=== PATIENT | female | born 1955 | race Two or more races ===

== ENCOUNTER 2024-07-06 08:52 | Emergency (ER) | payer OTHER ==
[~2024-07-06] VITALS: Ht 170.2 cm; Wt 98.5 kg
[2024-07-06 09:10] VITALS: PULSE 70; RESP 16; O2SAT 97
--- NOTE | 2024-07-06 11:00 | ED.PDOC ---
Epistaxis- HPI HPI Comments 68 y/o obese F, with a history of HTN, presents with c/o epistaxis since 0600, this morning. Patient reports unprovoked onset, with no prior history of epistaxis in the past. She refutes any history of blood thinner use along with any recent injuries, stressors, or strenuous activities. Patient denies any pain, weakness, lightheadedness, or other associated symptoms at this time. Chief Complaint: Nose Bleed Time Seen by MD: 10:00 Primary Care Provider: SO Cash Notes: Nurses Notes, Medications, Allergies Allergies: Coded Allergies: NO KNOWN ALLERGIES (Unverified , 07/06/24) Information Source: Patient Mode of Arrival: Ambulatory Timing: Hours Duration: Since onset Prehospital treatment: None Associated signs and symptoms: None Past Medical History PAST MEDICAL HISTORY: HTN Past Medical History (Other): obesity Surgical History: Denies all surgeries CHANGER FIXER History: Denies all CHANGER FIXER Hx Family History Family History: Unknown Social History Smoker: Non-Smoker Alcohol: Denies ETOH Use Drugs: Denies Drug Use Lives In: Home All Other Systems: Reviewed and Negative (Comprehensive systems review obtained and negative except for what is stated in the HPI.) Physical Exam General Appearance: No Apparent Distress, Obese HEENT: Pharynx Normal, TMs Normal, Other (anterior epistaxis, actively bleeding, otherwise normal HEENT exam ) Neck: Full Range of Motion, Non-Tender, Normal, Normal Inspection Respiratory: Chest Non-Tender, Lungs Clear, No Accessory Muscle Use, No Respiratory Distress, Normal Breath Sounds Cardiovascular: No Edema, No JVD, No Murmur, No Gallop, Normal Peripheral Pulses, Regular Rate/Rhythm Breast Exam: Deferred Gastrointestinal: No Organomegaly, Non Tender, No Pulsatile Mass, Normal Bowel Sounds, Soft Genitalia: Deferred Pelvic: Deferred Rectal: Deferred Extremities: No calf tenderness, Normal capillary refill, Normal inspection, Normal range of motion, Non-tender, No pedal edema Musculoskeletal : Apperance: Normal Neurologic: Alert, insurance compliance analyst II-XII nml as Tested, No Motor Deficits, Normal Affect, Normal Mood, No Sensory Deficits Cerebellar Function: Normal Reflexes: Normal Skin: Dry, Normal Color, Warm Lymphatic: No Adenopathy Was a procedure done? Was a procedure done?: Yes Sedation Sedation?: No Nasal Cautery and Pack Indicaton: Anterior epitaxis Silver nitrate: Right Hemostasis: Was obtained Location of packing: Right Packing: Expanding sponge (rhino rocket ), Other Informed consent obtained: Yes Risks/benefits/alt described: Yes Differential Diagnosis (NSB) Differential Diagnosis: Anterior Nasal Bleed, Hypertension, Coagulopathy X-Ray, Labs, Meds, VS Vital Signs Date Time Temp Pulse Resp B/P (MAP) Pulse Ox O2 Delivery O2 Flow Rate FiO2 07/06/24 13:00 98.1 62 15 169/74 (105) 98 98.1 07/06/24 12:17 63 07/06/24 11:00 70 14 157/87 (110) 99 07/06/24 09:10 70 16 97 Room Air* 0 21 07/06/24 09:10 98.3 68 12 135/62 (86) 97 98.3 07/06/24 09:03 98.5 83 16 151/82 (105) 98 98.5 Current Medications Medications (Trade) Dose Ordered Sig/Radhika Route Start Time Stop Time Status Last Admin Oxymetazoline HCl (Afrin) 1 spr ONCE ONCE EACHNOSTRI 07/06/24 12:15 07/06/24 12:16 DC 07/06/24 12:42 Time of 1ST Reevaluation: 10:30 Reevaluation 1ST: Unchanged Patient Education/Counseling: Diagnosis, Treatment, Need For Follow Up Family Education/Counseling: No Family Present Departure 1 Departure Time of Disposition: 14:47 (Patient had Afrin spray and a rhino rocket placed with good results. We will discharge patient home with outpatient follow up) Impression: Primary Impression: Acute anterior epistaxis Disposition: 01 HOME / SELF CARE / HOMELESS Condition: Stable Additional Instructions: You had a rhino rocket placed in your nose today. You were also given afrin. You can use it multiple times per day for the next few days. You should follow up with ear nose and throat. You can call Dr. Sotomayor at [phone] for an appointment within 3 days. For pain you can take the followinam: Ibuprofen 400mg with food Noon: Acetaminophen 1000mg 4pm: Ibuprofen 400mg with food 8pm: Acetaminophen 1000mg You should follow up with your regular doctor within one week to ensure you are doing better. If your symptoms worsen or you have any other concerns then please return to the ER. Discharged With: Self Critical Care Note Critical Care Time?: No Stability Stability form required: No Heart Score Heart Score: Heart Score Response (Comments) Value History N/A 0 EKG N/A 0 Age N/A 0 Risk Factors N/A 0 Troponin N/A 0 Total 0 I personally scribed for ELDA MUNOZ MD ([email or web address]) on 07/06/24 at 11:00. Electronically submitted by Davion Nuñez ([email or web address]). I personally scribed for ELDA MUNOZ MD ([email or web address]) on 07/06/24 at 14:10. Electronically submitted by Davion Nuñez ([email or web address]). ELDA MUNOZ MD Jul 06, 2024 11:00
[2024-07-06] MEDS: OXYMETAZOLINE HCL 0.05 % NASAL SPRAY 15ML EACHNOSTRI ONE (12:42)
[2024-07-06 13:00] VITALS: TEMP 98.1
[2024-07-06 14:51] VITALS: BP 175/72; PULSE 62; RESP 12; O2SAT 98
== END 2024-07-06 14:55 | disposition home or self-care (01) ==
LOC: ER 08:52
DX: R04.0 Epistaxis (principal); E66.9 Obesity, unspecified; I10 Essential (primary) hypertension
CPT/HCPCS: 30901